=== PATIENT | male | born 1940 | race Caucasian/White ===

== ENCOUNTER → 2017-10-31 | Outpatient (REF) | payer MEDICARE, BC ==
[2017-10-31 17:40] LABS: FERRITIN 204 NG/ML (26-388); IRON (FE) 100 UG/DL (65-175); PERCENT SATURATION 31.9 % (19.7-50.0); TOTAL IRON BINDING CAPACITY 313 UG/DL (250-450)
[2017-10-31 17:45] LABS: VITAMIN B12 LEVEL 403 PG/ML (247-911)
[2017-10-31 17:52] LABS: HEMATOCRIT 34.8 % (42.0-52.0)
[2017-10-31 17:53] LABS: RETIC HEMOGLOBIN EQUIVALENT 39.5 pg (24-36); RETICULOCYTE # 60.9 10^9/L (17-77); RETICULOCYTE % 1.9 % (0.5-1.5)
[2017-10-31 18:03] LABS: SOURCE PERIPHERAL SMEAR
[2017-10-31 18:04] LABS: SLIDE REVIEW Report
[2017-11-03 00:06] LABS: ERYTHROPOIETIN 23.5 mIU/mL (2.6-18.5); HOMOCYST(E)INE SERUM 14.4 umol/L (0.0-15.0)
[2017-11-04 14:36] LABS: PRETREATED FOLATE FOR RBCFOL 13.2 NG/ML; RBC FOLATE 796.6 NG/ML (280-791)
[2017-11-05 10:13] LABS: METHYLMALONIC ACID 270 nmol/L (0-378)
== END ==
LOC: M LAB REF 17:02
DX: D61.818 Other pancytopenia (principal); Z79.899 Other long term (current) drug therapy
CPT/HCPCS: 83550

== ENCOUNTER → 2017-11-11 | Outpatient (REF) | payer MEDICARE, BC | LOC: M LAB REF 12:50 | DX: D61.818 Other pancytopenia (principal) | CPT/HCPCS: 88300 ==

== ENCOUNTER → 2017-12-02 | Outpatient (REF) | payer MEDICARE, BC ==
[2017-12-02 18:33] LABS: TOTAL PROTEIN,RANDOM URINE 231.4 MG/DL (0.0-12.0); URINE TOTAL PROTEIN 231.4 MG/DL (0-12)
[2017-12-02 19:04] LABS: IMMUNOGLOBULIN G 235 MG/DL (681-1648); TOTAL PROTEIN 6.2 GM/DL (6.4-8.2)
[2017-12-02 20:05] LABS: IMMUNOGLOBULIN A 21.4 MG/DL (70-400); IMMUNOGLOBULIN M 9.03 MG/DL (40-230)
[2017-12-05 11:52] LABS: ALBUMIN 4.31 GM/DL (3.29-5.55); ALBUMIN % 69.5 % (55.8-66.1); ALPHA-1-GLOBULIN % 4.8 % (2.9-4.9); ALPHA-2-GLOBULINS 0.66 GM/DL (0.42-0.99); ALPHA-2-GLOBULINS % 10.6 % (7.1-11.8); BETA-1-GLOBULINS % 6.5 % (4.7-7.2); BETA-2-GLOBULINS 0.24 GM/DL (0.19-0.55); BETA-2-GLOBULINS % 3.9 % (3.2-6.5); GAMMA GLOBULIN % 4.7 % (11.1-18.8); GAMMA GLOBULINS 0.29 GM/DL (0.65-1.58)
[2017-12-05 13:04] LABS: IMMUNOTYPING SERUM LAMBDA ABNORMAL (NORMAL)
[2017-12-05 13:12] LABS: UPEP INTERPRETATION 2 M-SPIKES IN GAMMA; URINE VOLUME RANDOM ML
[2017-12-05 13:14] LABS: IMMUNOTYPE URINE LAMBDA ABNORMAL (NORMAL)
[2017-12-06 00:10] LABS: FREE LAMBDA LIGHT CHAINS SERUM 1475.8 mg/L (5.7-26.3); KAPPA/LAMBDA RATIO SERUM 0.01 (0.26-1.65)
[2017-12-06 00:10] LABS: BETA 2 MICROGLOBULIN 7.1 mg/L (0.6-2.4)
== END ==
LOC: M LAB REF 16:39
DX: D72.819 Decreased white blood cell count, unspecified (principal); D64.9 Anemia, unspecified
CPT/HCPCS: 84165

== ENCOUNTER → 2018-01-01 | Outpatient (REF) | payer MEDICARE, BC | LOC: M LAB REF 11:29 | DX: E85.9 Amyloidosis, unspecified (principal) | CPT/HCPCS: 88313 ==

== ENCOUNTER → 2018-01-23 | Outpatient (REF) | payer MEDICARE, BC ==
[2018-01-23 14:36] LABS: TOTAL PROTEIN 5.6 GM/DL (6.4-8.2)
[2018-01-25 00:06] LABS: FREE KAPPA LIGHT CHAINS SERUM 13.4 mg/L (3.3-19.4); FREE LAMBDA LIGHT CHAINS SERUM 995.2 mg/L (5.7-26.3); KAPPA/LAMBDA RATIO SERUM 0.01 (0.26-1.65)
[2018-01-28 11:09] LABS: ALBUMIN 3.52 GM/DL (3.29-5.55); ALBUMIN % 62.9 % (55.8-66.1); ALPHA-1-GLOBULIN % 7.3 % (2.9-4.9); ALPHA-1-GLOBULINS 0.41 GM/DL (0.17-0.41); ALPHA-2-GLOBULINS 0.77 GM/DL (0.42-0.99); ALPHA-2-GLOBULINS % 13.7 % (7.1-11.8); BETA-1-GLOBULINS 0.38 GM/DL (0.28-0.60); BETA-1-GLOBULINS % 6.7 % (4.7-7.2); BETA-2-GLOBULINS 0.26 GM/DL (0.19-0.55)
[2018-01-28 11:10] LABS: BETA-2-GLOBULINS % 4.6 % (3.2-6.5); GAMMA GLOBULIN % 4.8 % (11.1-18.8); GAMMA GLOBULINS 0.27 GM/DL (0.65-1.58)
== END ==
LOC: M LAB REF 13:25
DX: D72.819 Decreased white blood cell count, unspecified (principal); D64.9 Anemia, unspecified
CPT/HCPCS: 84165

== ENCOUNTER → 2018-02-27 | Outpatient (REF) | payer MEDICARE, BC ==
[2018-02-27 22:32] LABS: TOTAL PROTEIN 5.5 GM/DL (6.4-8.2)
[2018-03-01 00:07] LABS: KAPPA/LAMBDA RATIO SERUM 0.01 (0.26-1.65)
[2018-03-03 13:27] LABS: ALBUMIN 3.69 GM/DL (3.29-5.55); ALBUMIN % 67.1 % (55.8-66.1); ALPHA-1-GLOBULIN % 5.5 % (2.9-4.9); ALPHA-2-GLOBULINS 0.63 GM/DL (0.42-0.99); ALPHA-2-GLOBULINS % 11.5 % (7.1-11.8); BETA-1-GLOBULINS % 7.3 % (4.7-7.2); BETA-2-GLOBULINS 0.22 GM/DL (0.19-0.55); GAMMA GLOBULIN % 4.6 % (11.1-18.8); GAMMA GLOBULINS 0.25 GM/DL (0.65-1.58)
== END ==
LOC: M LAB REF 13:48
DX: D72.819 Decreased white blood cell count, unspecified (principal); D64.9 Anemia, unspecified
CPT/HCPCS: 84165